=== PATIENT | female | born 1935 | race Caucasian/White ===

== ENCOUNTER → 2016-12-16 | Outpatient (CLI) | payer OTHER ==
[~2016-12-16] MED LIST: ACET1TAB84 PO; B-CO1CAP5 PO; CALCTAB5 PO; CHOL20007 PO; GABA-112 PO; GARL400T5 PO; GLUC500T35 PO; LPT/20 PO; MECL1TAB42 PO; MELA1TAB5 PO; MULTTAB58 PO; OMEP20CA9 PO; POLYSOL4 OP; RXC5 PO; TRAM-10 PO; VITATAB19 PO; [UNRECOGNIZED DRUG - CODE] OPB; mega red PO
[2016-12-16 16:43] LABS: BASO % 0.7 %; BASO ABS # 0.05 K/uL (0-0.2); COMPLETE YES; EOS % 3.8 %; HEMATOCRIT 41.6 % (37-47); LYMPH % 35.8 %; LYMPH ABS # 2.46 K/uL (1.2-3.4); MEAN CELL VOLUME 93.1 fL (80-100); MEAN CORPUSCULAR HEMOGLOBIN 30.6 pg (25-34); MEAN CORPUSCULAR HGB CONC 32.9 g/dl (32-36); MEAN PLATELET VOLUME 10.5 fL (7.4-10.4); MONO % 6.6 %; NEUT % 53.1 %; PLATELET COUNT 281 K/uL (130-400); RED BLOOD COUNT 4.47 M/uL (4.2-5.4); WHITE BLOOD COUNT 6.87 K/uL (4.8-10.8)
[2016-12-16 17:05] LABS: ALB/GLOB RATIO 1.2 (0.9-2); ALKALINE PHOSPHATASE 120 U/L (45-117); ALT/SGPT 23 U/L (12-78); AST/SGOT 26 U/L (15-37); BLOOD UREA NITROGEN 17 mg/dl (7-18); BUN/CREATININE RATIO 18.5 (10-20); CALCIUM 9.1 mg/dl (8.5-10.1); CARBON DIOXIDE 27 mmol/L (21-32); CHLORIDE 108 mmol/L (98-107); CREATININE 0.93 mg/dl (0.60-1.20); GLUCOSE 97 mg/dl (70-99); HDL CHOLESTEROL 63 mg/dl; POTASSIUM 4.3 mmol/L (3.5-5.1); SODIUM 141 mmol/L (136-145)
[2016-12-16 17:16] LABS: CHOLESTEROL 191 mg/dl (0-200); LDL CHOLESTEROL CALCULATED 96 mg/dl; TRIGLYCERIDES 158 mg/dl (0-150); VERY LOW DENSITY LIPOPROT CALC 32 mg/dl
== END | disposition home or self-care (01) ==
LOC: C.LABBC 14:35
PROVIDERS: ATTEND Internal Medicine Geriatric Medicine
DX: E78.5 Hyperlipidemia, unspecified (principal); I10 Essential (primary) hypertension; M85.80 Other specified disorders of bone density and structure, unspecified site; J45.909 Unspecified asthma, uncomplicated; R79.89 Other specified abnormal findings of blood chemistry

== ENCOUNTER → 2017-03-09 | Outpatient (CLI) | payer OTHER ==
--- NOTE | 2017-03-09 14:07 | MAMMOGRAPHY REPORT ---
BILATERAL DIGITAL SCREENING MAMMOGRAM WITH CAD: 03/09/2017 CLINICAL HISTORY: Routine screening. TECHNIQUE: Current study was also evaluated with a Computer Aided Detection (CAD) system. Bilateral CC and MLO views were obtained. COMPARISON: Comparison is made to exams dated: 01/20/2016 mammogram, 02/05/2015 mammogram, 01/29/2015 ma mmogram, 01/09/2014 mammogram, 01/08/2013 mammogram, and 01/06/2012 mammogram - [facility] nter. BREAST COMPOSITION: The tissue of both breasts is heterogeneously dense, which may obscure small mas ses. FINDINGS: No suspicious masses, calcifications, or areas of architectural distortion are noted in ei ther breast. There has been no significant interval change compared to prior exams. Scattered bilater al benign-appearing calcifications are not significantly changed. IMPRESSION: ACR BI-RADS CATEGORY 2: BENIGN There is no mammographic evidence of malignancy. A 1 year screening mammogram is recommended. The pa tient will receive written notification of the results. Approximately 10% of breast cancers are not detected with mammography. A negative mammographic report should not delay biopsy if a clinically suggestive mass is present. Lulu Kelsey M.D. ah/:03/09/2017 11:54:40 [employer] Estimator: Jacquelyn GALLO(R)(M), [facility] letter sent: Normal 1/2 BI-RADS Code: ACR BI-RADS Category 2: Benign
== END | disposition home or self-care (01) ==
LOC: C.MAMM 11:24
PROVIDERS: ATTEND Internal Medicine Geriatric Medicine
DX: Z12.31 Encounter for screening mammogram for malignant neoplasm of breast (principal)

== ENCOUNTER 2017-12-07 10:45 | Emergency (ER) | payer OTHER ==
[~2017-12-07 10:45] MED LIST changes: -LPT/20 PO; +LPT20 PO
[2017-12-07 10:50] VITALS: TEMP 36.3; Ht 160 cm
[2017-12-07] MEDS ORDERED: SODIUM CHLORIDE 0.9% 500ML 500 ML IV STA (11:09)
[2017-12-07] MEDS ORDERED: MECLIZINE HCL 25 MG TAB PO STA (11:09)
[2017-12-07 11:41] LABS: ISTAT IONIZED CALCIUM 1.15 mmol/l (1.12-1.32); ISTAT POTASSIUM 4.6 mEq/L (3.3-5.0)
[2017-12-07 12:11] LABS: BASO % 0.5 %; BASO ABS # 0.03 K/uL (0-0.2); EOS % 2.8 %; EOS ABS # 0.17 K/uL (0-0.5); HEMATOCRIT 39.3 % (37-47); HEMOGLOBIN 13.5 g/dL (12.0-16.0); IG# 0.01 K/uL (0.00-0.02); LYMPH % 23.1 %; LYMPH ABS # 1.41 K/uL (1.2-3.4); MEAN CELL VOLUME 92.5 fL (80-100); MEAN CORPUSCULAR HEMOGLOBIN 31.8 pg (25-34); MEAN CORPUSCULAR HGB CONC 34.4 g/dl (32-36); MEAN PLATELET VOLUME 10.2 fL (7.4-10.4); MONO ABS # 0.43 K/uL (0.11-0.59); NEUT % 66.4 %; NEUT ABS # 4.05 K/uL (1.4-6.5); PLATELET COUNT 212 K/uL (130-400); RED CELL DISTRIBUTION WIDTH SD 47.4 fL (36.4-46.3)
--- NOTE | 2017-12-07 12:20 | DIAGNOSTIC IMAGING REPORT ---
HEAD WITHOUT CONTRAST (CT) CLINICAL HISTORY: 82 years-old Female presenting with dizziness, weakness in the legs, sweating. TECHNIQUE: Multidetector CT imaging of the head was performed without the use of intravenous contrast. IV contrast: None. A dose lowering technique was used consistent with the principles of ALARA (as low as reasonably achievable). COMPARISON: None. CT DOSE (mGy.cm): The estimated cumulative dose is 638.56 mGycm. FINDINGS: [employer] Program Coordinator topogram: Unremarkable. Ventricles and sulci normal in size. Brain parenchyma normal in appearance with preserved dominguez-white differentiation. No mass effect or midline shift. No hemorrhage or acute territorial infarct. No extra-axial fluid collection. Paranasal sinuses and mastoid air cells clear. Calvarium intact. IMPRESSION: 1. No acute intracranial abnormality. Electronically signed by: Josep Cho M.D. 12/07/2017 12:19 PM Dictated Date/Time: 12/07/2017 12:17 PM
[2017-12-07 12:24] LABS: BLOOD UREA NITROGEN 17 mg/dl (7-18); CALCIUM 9.4 mg/dl (8.5-10.1); CARBON DIOXIDE 23 mmol/L (21-32); CREATININE 1.03 mg/dl (0.60-1.20); GLUCOSE 98 mg/dl (70-99); POTASSIUM 4.6 mmol/L (3.5-5.1); SODIUM 138 mmol/L (136-145)
[2017-12-07] MEDS ORDERED: OMEG10007 PO (12:43)
[2017-12-07] MEDS ORDERED: EPP3/2 IM (12:43)
[2017-12-07] MEDS ORDERED: KRIL1CAP18 PO (12:43)
[2017-12-07] MEDS ORDERED: VITATAB19 PO (12:43)
[2017-12-07] MEDS ORDERED: CALC-354 PO (12:43)
[2017-12-07 13:28] VITALS: BP 162/72; PULSE 72; O2SAT 96
--- NOTE | 2017-12-07 13:29 | EMERGENCY ROOM VISIT NOTE ---
History Report prepared by Chela: Lisandro Amador Under the Supervision of: Dr. Vik Gastelum M.D. First contact with patient: 10:54 Chief Complaint: DIZZY Stated Complaint: DIZZY, WEAKNESS IN LEGS, SWEATING History of Present Illness The patient is a 82 year old female who presents to the Emergency Room with complaints of a near-syncopal episode occurring just prior to arrival. She has a history of vertigo for which she is prescribed Meclizine. The patient states that her symptoms occurred while standing on a stool having her dress hemmed. She states that her symptoms began suddenly. Her symptoms include dizziness and diaphoresis. The patient describes her dizziness as "the room was spinning". She was lowered to the ground with assistance, and did not fall. She laid on a couch with later improved her symptoms. She ate a normal breakfast today. The patient did not actually pass out today, or lose consciousness. Source of History: patient Onset: Just prior to arrival Quality: other (Near-syncope) Timing: other (episode) Modifying Factors (Relieving): other (laying on cough) Associated Symptoms: + diaphoresis, + weakness (leg), No LOC Note: Positive: dizziness. Review of Systems See HPI for pertinent positives and negatives. A total of ten systems were reviewed and were otherwise negative. Past Medical & Surgical Medical Problems: (1) Asthma, Unspecified (2) Carpal Tunnel Syndrome (3) Hyperlipidemia Nec/Nos (4) Hypertension Nos (5) Osteoarthritis of left shoulder Family History No pertinent family history stated. Social History Smoking Status: Never Smoker Drug Use: none Marital Status: Housing Status: lives with significant other Occupation Status: retired Current/Historical Medications Scheduled Atorvastatin (Lipitor), 20 MG PO QAM B-Complex W/Biotin & Folic Aci (Super B-Complex), 1 CAP PO QAM Calcium Carbonate-Cholecalcife (Caltrate 600+D), 2 TAB PO DAILY Cholecalciferol (Vitamin D3), 1 TAB PO QPM Epinephrine (Epipen), 0.3 MG IM UD Fish Oil ([place]-3), 1 CAP PO DAILY Gabapentin (Neurontin), 200 MG PO BID Garlic (Garlique), 400 MG PO QPM Glucosamine-Chondroitin (Cosamin Ds), 1 TAB PO BID Krill Oil ([place]-3 500 mg), 1 CAP PO DAILY Multiple Vitamin (Multivitamin), 1 TAB PO QAM Omeprazole (Prilosec), 40 MG PO BID Tramadol (Ultram), 50 MG PO HS Vitamin A-Beta Carotene (Vitamin A), 1 TAB PO DAILY Scheduled PRN Meclizine Hcl (Meclizine Hcl), 25 MG PO for Dizziness or Vertigo Allergies Coded Allergies: Sulfa Drugs (Verified Allergy, Unknown, RASH, 12/07/17) Morphine (Verified Adverse Reaction, Unknown, N&V, 12/07/17) Physical Exam Vital Signs Date Time Temp Pulse Resp B/P (MAP) Pulse Ox O2 Delivery O2 Flow Rate FiO2 12/07/17 13:28 72 18 162/72 96 Room Air 12/07/17 12:21 74 12/07/17 12:19 75 18 164/85 97 Room Air 12/07/17 11:07 65 18 149/78 98 Room Air 12/07/17 10:50 36.3 66 20 139/73 97 Room Air Physical Exam Physical Exam GENERAL: She is oriented to person, place, and time. She appears well- developed and well-nourished. She does not appear distressed. ____ HENT: Exam performed. Head: Normocephalic and atraumatic. Right Ear: External ear normal. No mastoid tenderness. Left Ear: External ear normal. No mastoid tenderness. Mouth/Throat: The oropharynx is clear and moist. No trismus in the jaw. No dental abscesses or uvula swelling. No oropharyngeal exudate or tonsillar abscesses. ____ EYES: Conjunctivae and EOM are normal. Pupils are equal, round, and reactive to light. Right eye exhibits no discharge. Left eye exhibits no discharge. No scleral icterus. ____ NECK: Normal range of motion. Neck supple. No JVD present. No spinous process tenderness present. No carotid bruit present. No rigidity. No tracheal deviation and normal range of motion present. No Brudzinski's sign and no Kernig 's sign noted. ____ CV: Normal rate, regular rhythm, normal heart sounds and intact distal pulses. There is no peripheral edema. Palpable radial pulses bue. ____ PULM/CHEST: Effort normal and breath sounds normal. No respiratory distress. No stridor. She has no wheezes. She has no rales. Chest Wall: She exhibits no tenderness. ____ ABD: The abdomen is soft. Bowel sounds are normal. She has no distension. No mass is present. There is no tenderness. There is no rebound, no guarding, no Estrada's sign and no tenderness at McBurney's point. Rovsig negative MUSC/SKEL: Normal range of motion. There is no peripheral edema, tenderness or deformity. LYMPH: No cervical adenopathy. ____ NEURO: She is alert and oriented to person, place, and time. She has normal strength. No cranial nerve deficit or sensory deficit. Coordination and gait normal. GCS eye subscore is 4. GCS verbal subscore is 5. GCS motor subscore is 6. Cerebellar tests wnl. ____ SKIN: Skin is warm and dry. She is not diaphoretic. ____ PSYCH: She has a normal mood and affect. Her behavior is normal. Judgment and thought content normal. ____ Medical Decision & Procedures ER Provider Diagnostic Interpretation: Radiology results as stated below per my review and radiologist interpretation: HEAD WITHOUT CONTRAST (CT) FINDINGS: Bus Monitor topogram: Unremarkable. Ventricles and sulci normal in size. Brain parenchyma normal in appearance with preserved dominguez-white differentiation. No mass effect or midline shift. No hemorrhage or acute territorial infarct. No extra-axial fluid collection. Paranasal sinuses and mastoid air cells clear. Calvarium intact. IMPRESSION: 1. No acute intracranial abnormality. Electronically signed by: Josep Cho M.D. 12/07/2017 12:19 PM Laboratory Results 12/07/17 11:20 Red Blood Count 4.25, Mean Corpuscular Volume 92.5, Mean Corpuscular Hemoglobin 31.8, Mean Corpuscular Hemoglobin Concent 34.4, Mean Platelet Volume 10.2, Neutrophils (%) (Auto) 66.4, Lymphocytes (%) (Auto) 23.1, Monocytes (%) (Auto) 7.0, Eosinophils (%) (Auto) 2.8, Basophils (%) (Auto) 0.5, Neutrophils # (Auto) 4.05, Lymphocytes # (Auto) 1.41, Monocytes # (Auto) 0.43, Eosinophils # (Auto) 0.17, Basophils # (Auto) 0.03 12/07/17 11:20 Test 12/07/17 11:14 12/07/17 11:20 12/07/17 11:31 Bedside Glucose 93 mg/dl (70-90) White Blood Count 6.10 K/uL (4.8-10.8) Red Blood Count 4.25 M/uL (4.2-5.4) Hemoglobin 13.5 g/dL (12.0-16.0) Hematocrit 39.3 % (37-47) Mean Corpuscular Volume 92.5 fL (80-100) Mean Corpuscular Hemoglobin 31.8 pg (25-34) Mean Corpuscular Hemoglobin Concent 34.4 g/dl (32-36) Platelet Count 212 K/uL (130-400) Mean Platelet Volume 10.2 fL (7.4-10.4) Neutrophils (%) (Auto) 66.4 % Lymphocytes (%) (Auto) 23.1 % Monocytes (%) (Auto) 7.0 % Eosinophils (%) (Auto) 2.8 % Basophils (%) (Auto) 0.5 % Neutrophils # (Auto) 4.05 K/uL (1.4-6.5) Lymphocytes # (Auto) 1.41 K/uL (1.2-3.4) Monocytes # (Auto) 0.43 K/uL (0.11-0.59) Eosinophils # (Auto) 0.17 K/uL (0-0.5) Basophils # (Auto) 0.03 K/uL (0-0.2) RDW Standard Deviation 47.4 fL (36.4-46.3) RDW Coefficient of Variation 14.0 % (11.5-14.5) Immature Granulocyte % (Auto) 0.2 % Immature Granulocyte # (Auto) 0.01 K/uL (0.00-0.02) Estimated GFR () 58.6 Estimated GFR (Non- 50.6 BUN/Creatinine Ratio 16.8 (10-20) Calcium Level 9.4 mg/dl (8.5-10.1) Troponin I < 0.015 ng/ml (0-0.045) Bedside Hemoglobin 13.6 g/dl (12.0-16.0) Bedside Hematocrit 40 % (37-47) Bedside Sodium 138 mEq/L (135-144) Bedside Potassium 4.6 mEq/L (3.3-5.0) Bedside Chloride 104 mEq/L (101-112) Bedside Total CO2 22 mEq/l (24-31) Anion Gap 18.0 mmol/L (16-25) Bedside Blood Urea Nitrogen 18 mg/dl (7-18) Bedside Creatinine 1.0 mg/dl (0.6-1.3) Bedside Glucose (other) 96 mg/dl (70-99) Bedside Ionized Calcium (Michelle) 1.15 mmol/l (1.12-1.32) Laboratory results reviewed by me Medications Administered Medications (Trade) Dose Ordered Sig/Braydon Route Start Time Stop Time Status Last Admin Dose Admin Meclizine HCl (Antivert Tab) 25 mg NOW STAT PO 12/07/17 11:09 12/07/17 11:12 DC 12/07/17 11:31 25 MG Sodium Chloride 500 ml @ 999 mls/hr Q31M STAT IV 12/07/17 11:09 12/07/17 11:39 DC 12/07/17 11:32 999 MLS/HR ECG Per My Interpretation Indication: other (dizziness) Rate (beats per minute): 59 Rhythm: normal sinus Findings: other (AR, QRS, and QTC intervals within normal limits. No ST elevations or depressions. ) ED Course 1103: The patient was evaluated in room C6. A complete history and physical exam was performed. 1109: Ordered Sodium Chloride 500 ml @ 999 mls/hr IV, Antivert Tab 25 mg PO. 1305: The patient's vitals are stable. She feels much better after receiving Meclizine. She is able to ambulate without difficulty. Labs, and imaging within normal limits. Patient will be discharged to follow up with PCP. She has a Meclizine prescription at home DISCHARGE - Plan of care discussed with patient and questions answered. The patient was given both verbal and printed discharge instructions. The patient verbalized understanding and ability to comply. The patient is to seek outpatient follow up as noted in the discharge instructions. The patient verbalized understanding and ability to comply. The patient is discharged in stable condition. The patient was instructed to return for worsening symptoms. Medical Decision The patient's vitals are stable. She feels much better after receiving Meclizine. She is able to ambulate without difficulty. Labs, and imaging within normal limits. Patient will be discharged to follow up with PCP. She has a Meclizine prescription at home DISCHARGE - Plan of care discussed with patient and questions answered. The patient was given both verbal and printed discharge instructions. The patient verbalized understanding and ability to comply. The patient is to seek outpatient follow up as noted in the discharge instructions. The patient verbalized understanding and ability to comply. The patient is discharged in stable condition. The patient was instructed to return for worsening symptoms. Medication Reconcilliation Current Medication List: was personally reviewed by me Blood Pressure Screening Patient's blood pressure: Elevated blood pressure Blood pressure disposition: Elevated BP felt to be situational Impression Primary Impression: Vertigo Scribe Attestation The scribe's documentation has been prepared under my direction and personally reviewed by me in its entirety. I confirm that the note above accurately reflects all work, treatment, procedures, and medical decision making performed by me. The chart was completed utilizing [employer] Speech voice recognition software. Grammatical errors, random word insertions, pronoun errors, and incomplete sentences are an occasional consequence of this system due to software limitations, ambient noise, and hardware issues. Any formal questions or concerns about the content, text, or information contained within the body of this dictation should be directly addressed to the physician for clarification. Departure Information Dispostion Home / Self-Care Referrals Tomer Roldan M.D. (PCP) Forms HOME CARE DOCUMENTATION FORM, IMPORTANT VISIT INFORMATION Patient Instructions Dizziness Vertigo Balance Safety, ED BPV Vertigo, [facility] Additional Instructions Return to the emergency department if you develop chest pain, difficulty breathing, headache, fever greater than 100.4, lose consciousness, fall, or your symptoms worsen
== END 2017-12-07 13:29 | disposition home or self-care (01) ==
LOC: C.EDB 10:46 → C.EDC 13:29
DX: R42 Dizziness and giddiness (principal); J45.909 Unspecified asthma, uncomplicated; E78.5 Hyperlipidemia, unspecified; I10 Essential (primary) hypertension; M19.012 Primary osteoarthritis, left shoulder; Z79.899 Other long term (current) drug therapy; Z88.2 Allergy status to sulfonamides; Z88.5 Allergy status to narcotic agent

== ENCOUNTER → 2017-12-11 | Outpatient (CLI) | payer OTHER ==
[~2017-12-11] MED LIST changes: -ACET1TAB84 PO; +CALC-354 PO; -CALCTAB5 PO; +EPP3/2 IM; +KRIL1CAP18 PO; -MELA1TAB5 PO; +OMEG10007 PO; -POLYSOL4 OP; -RXC5 PO; -[UNRECOGNIZED DRUG - CODE] OPB; -mega red PO
[2017-12-11 13:24] LABS: BASO % 0.9 %; BASO ABS # 0.07 K/uL (0-0.2); EOS % 5.3 %; EOS ABS # 0.39 K/uL (0-0.5); HEMATOCRIT 41.5 % (37-47); HEMOGLOBIN 13.9 g/dL (12.0-16.0); IG# 0.01 K/uL (0.00-0.02); LYMPH % 32.4 %; MEAN CELL VOLUME 94.3 fL (80-100); MEAN CORPUSCULAR HEMOGLOBIN 31.6 pg (25-34); MEAN CORPUSCULAR HGB CONC 33.5 g/dl (32-36); MEAN PLATELET VOLUME 10.4 fL (7.4-10.4); MONO % 6.9 %; MONO ABS # 0.51 K/uL (0.11-0.59); NEUT % 54.4 %; NEUT ABS # 4.02 K/uL (1.4-6.5); PLATELET COUNT 244 K/uL (130-400); RED CELL DISTRIBUTION WIDTH CV 14.2 % (11.5-14.5); RED CELL DISTRIBUTION WIDTH SD 49.4 fL (36.4-46.3)
[2017-12-11 14:50] LABS: ALBUMIN 3.8 gm/dl (3.4-5.0); ALKALINE PHOSPHATASE 105 U/L (45-117); ALT/SGPT 24 U/L (12-78); AST/SGOT 26 U/L (15-37); BLOOD UREA NITROGEN 20 mg/dl (7-18); CALCIUM 8.6 mg/dl (8.5-10.1); CARBON DIOXIDE 23 mmol/L (21-32); CHOLESTEROL 162 mg/dl (0-200); CREATININE 1.11 mg/dl (0.60-1.20); GLUCOSE 89 mg/dl (70-99); LDL CHOLESTEROL CALCULATED 55 mg/dl; POTASSIUM 4.2 mmol/L (3.5-5.1); SODIUM 140 mmol/L (136-145); TOTAL PROTEIN 7.1 gm/dl (6.4-8.2)
== END | disposition home or self-care (01) ==
LOC: C.LABBC 10:20
PROVIDERS: ATTEND Internal Medicine Geriatric Medicine
DX: I10 Essential (primary) hypertension (principal); F09 Unspecified mental disorder due to known physiological condition; E78.5 Hyperlipidemia, unspecified; J45.909 Unspecified asthma, uncomplicated

== ENCOUNTER → 2018-03-13 | Outpatient (CLI) | payer OTHER ==
--- NOTE | 2018-03-14 13:38 | MAMMOGRAPHY REPORT ---
BILATERAL DIGITAL SCREENING MAMMOGRAM TOMOSYNTHESIS WITH CAD: 03/13/2018 CLINICAL HISTORY: Routine screening. TECHNIQUE: The study was acquired using full field digital technology and interpreted from soft copy. Breast tomosynthesis in addition to standard 2D mammography was performed. Current study was also ev aluated with a Computer Aided Detection (CAD) system. COMPARISON: Comparison is made to exams dated: 03/09/2017 mammogram, 01/20/2016 mammogram, 01/29/2015 ma mmogram, 01/09/2014 mammogram, 01/08/2013 mammogram, and 01/06/2012 mammogram - [facility] nter. BREAST COMPOSITION: The tissue of both breasts is heterogeneously dense, which may obscure small mass es. FINDINGS: There are bilateral benign rim calcifications and stable punctate microcalcifications in th e right breast. No suspicious mass, architectural distortion or cluster of microcalcifications is see n. IMPRESSION: ACR BI-RADS CATEGORY 1: NEGATIVE There is no mammographic evidence of malignancy. A 1 year screening mammogram is recommended.( 019) The patient will receive written notification of the results. Some breast cancers are not detected with mammography. A negative mammographic report should not abram y biopsy if a clinically suggestive mass is present. Elisha Zhang M.D. ay/:03/13/2018 19:47:44 Product Technology Scientist: RT Ene(R)(M), [facility] letter sent: Normal 1/2 BI-RADS Code: ACR BI-RADS Category 1: Negative
== END | disposition home or self-care (01) ==
LOC: C.MAMM 12:28
PROVIDERS: ATTEND Internal Medicine Geriatric Medicine
DX: Z12.31 Encounter for screening mammogram for malignant neoplasm of breast (principal)